=== PATIENT | male | born 1995 | race African-American/Black ===

== ENCOUNTER 2020-01-19 14:42 | Emergency (ER) | payer BC ==
[~2020-01-19] VITALS: Ht 182.9 cm; Wt 81.6 kg
[2020-01-19] MEDS ORDERED: EPINEPHRINE (1:1000) 1 MG/ML AMPUL ONE (14:51)
[2020-01-19] MEDS ORDERED: diphenhydrAMINE HCL 50 MG/ML VIAL ONE (14:57)
[2020-01-19] MEDS ORDERED: methylPREDNISolone SOD SUCC 125 MG/2ML VIAL ONE (14:57)
[2020-01-19] MEDS ORDERED: FAMOTIDINE/PF INJ 20 MG/2 ML VIAL IV ONE ×2 (14:58→15:00)
[2020-01-19] MEDS ORDERED: methylPREDNISolone SOD SUCC 125 MG/2ML VIAL IV ONE (15:00)
[2020-01-19] MEDS ORDERED: EPINEPHRINE (1:1000) MDV 30 MG/30ML VIAL IM ONE (15:00)
[2020-01-19] MEDS ORDERED: IV NS 0.9% 1,000 ML BAG IV ONE (15:00)
[2020-01-19] MEDS ORDERED: diphenhydrAMINE HCL 50 MG/ML VIAL IV ONE (15:00)
--- NOTE | 2020-01-19 15:05 | NUR ---
patient came in to the er c/o Allergic reaction with facial swelling and shortness of breath since am. On room air, breathing evenly and unlabored. connected to the monitor and pulse ox. kept comfortable, will continue to monitor accordingly.
[2020-01-19 18:17] VITALS: BP 122/66
--- NOTE | 2020-01-19 18:17 | NUR ---
Patient discharged to home in stable condition. Written and verbal after care instructions given. Patient verbalizes understanding of instruction.IV removed. Catheter intact and site benign. Pressure and 4x4 applied to site. No bleeding noted.
== END 2020-01-19 18:17 | disposition home or self-care (01) ==
LOC: ER 14:46
DX: T78.04XA Anaphylactic reaction due to fruits and vegetables, initial encounter (principal); J45.909 Unspecified asthma, uncomplicated; Z91.010 Allergy to peanuts
CPT/HCPCS: 96361; 96372; 96374; 96375; 99284; J0171; J1200; J2930; J3490; J7030